=== PATIENT | male | born 1980 | race Two or more races ===

== ENCOUNTER 2022-02-18 07:15 | Outpatient (CLI) | payer OTHER | END 2022-02-18 07:22 | disposition home or self-care (01) | LOC: LAB 07:15 | PROVIDERS: ATTEND Orthopaedic Surgery | DX: E56.1 Deficiency of vitamin K (principal); E21.3 Hyperparathyroidism, unspecified; E88.9 Metabolic disorder, unspecified; M81.8 Other osteoporosis without current pathological fracture ==